=== PATIENT | male | born 1975 | race Hispanic/Latino ===

== ENCOUNTER 2018-08-24 16:26 | Emergency (ER) | payer SELFPAY ==
[2018-08-24 16:45] LABS: Absolute Lymphocytes (CBC) 5.4 K/uL (0.7-4.9); Absolute Monocytes 0.9 K/uL (0.1-1.3); Absolute Neutrophil 3.5 K/uL (1.8-8.0); Eosinophils % 3.9 % (0-4.4); Hematocrit 43.1 % (39.6-49.0); Lymphocytes % 52.7 % (15.3-44.8); MPV 9.7 fL (7.6-11.3); Monocytes % 8.5 % (3.3-12.3)
[2018-08-24] MEDS ORDERED: ONDANSETRON 4 MG/2 ML VIAL ONE (16:46)
[2018-08-24] MEDS ORDERED: MORPHINE 4 MG/ML SYR ONE ×2 (16:46→16:56)
--- NOTE | 2018-08-24 16:50 | ER ---
Nurse's Notes [facility] Name: Mike Vega Age: 43 yrs Sex: Male : 1975 Arrival Date: 08/24/2018 Time: 16:28 Bed 17 Private MD: Diagnosis: STEMI- Inferior Wall Presentation: 08/24 16:31 Presenting complaint: EMS states: pt rolled over in front of [facility] complaining hj of chest pain and diaphoretic, pain of 8/10;. Transition of care: patient was not received from another setting of care. Onset of symptoms was August 24, 2018 at 16:00. Risk Assessment: Do you want to hurt yourself or someone else? Patient reports no desire to harm self or others. Initial Sepsis Screen: Does the patient meet any 2 criteria? No. Patient's initial sepsis screen is negative. Does the patient have a suspected source of infection? No. Patient's initial sepsis screen is negative. Care prior to arrival: None. 16:31 Method Of Arrival: EMS: [facility] hj 16:31 Acuity: MARCIAL 2 hj Triage Assessment: 16:41 General: Appears in no apparent distress. uncomfortable, Behavior is cooperative, hj appropriate for age, anxious. Pain: Complains of pain in chest Pain radiates to back Pain currently is 8 out of 10 on a pain scale. EENT: No signs and/or symptoms were reported regarding the EENT system. Neuro: Level of Consciousness is awake, alert, obeys commands, Oriented to person, place, time, situation, Appropriate for age. Cardiovascular: Reports chest pain, diaphoresis, nausea, Heart tones S1 S2 Capillary refill < 3 seconds Rhythm is sinus bradycardia. Respiratory: Reports shortness of breath. GI: No signs and/or symptoms were reported involving the gastrointestinal system. : No signs and/or symptoms were reported regarding the genitourinary system. Derm: No signs and/or symptoms reported regarding the dermatologic system. Musculoskeletal: No signs and/or symptoms reported regarding the musculoskeletal system. Historical: - Allergies: 16:40 No Known Allergies; hj - Home Meds: 16:40 None [Active]; hj - PMHx: 16:40 None; hj - PSHx: 16:40 None; hj - Immunization history:: Adult Immunizations unknown. - Social history:: Smoking status: Patient/guardian denies using tobacco, Patient/guardian denies using alcohol. - Ebola Screening: : Patient negative for fever greater than or equal to 101.5 degrees Fahrenheit, and additional compatible Ebola Virus Disease symptoms Patient denies exposure to infectious person Patient denies travel to an Ebola-affected area in the 21 days before illness onset. Screenin:41 Abuse screen: Denies threats or abuse. Denies injuries from another. Nutritional hj screening: No deficits noted. Tuberculosis screening: No symptoms or risk factors identified. Fall Risk None identified. Assessment: 16:42 Pain: Pain began 30 min ago. hj 16:42 General: Appears in no apparent distress. uncomfortable, Behavior is cooperative, hj appropriate for age, anxious. Pain: Complains of pain in chest Pain radiates to back. Neuro: Level of Consciousness is awake, alert, obeys commands, Oriented to person, place, time, situation, Appropriate for age. Cardiovascular: Reports chest pain. Respiratory: Reports shortness of breath Airway is patent Respiratory effort is even, unlabored, Respiratory pattern is regular, symmetrical. GI: No signs and/or symptoms were reported involving the gastrointestinal system. : No signs and/or symptoms were reported regarding the genitourinary system. EENT: No signs and/or symptoms were reported regarding the EENT system. Derm: No signs and/or symptoms reported regarding the dermatologic system. Musculoskeletal: No signs and/or symptoms reported regarding the musculoskeletal system. 16:42 Reassessment: pt complaints of pain; provider aware with orders;. hj 16:50 Reassessment: Patient and/or family updated on plan of care and expected duration. Pain hj level reassessed. Patient is alert, oriented x 3, equal unlabored respirations, skin warm/dry/pink. carried out orders as ordered;. 16:55 Reassessment: reports called to Nancy Pritchett RN labor economics teacher at [facility];. hj 17:05 Reassessment: at bedside; report given to EMS LJ crew; pt transferred to stretcher;. Reassessment: Patient and/or family updated on plan of care and expected duration. Pain level reassessed. Patient is alert, oriented x 3, equal unlabored respirations, skin warm/dry/pink. pt left ED;. Vital Signs: 16:31 BP 185 / 96; Pulse 55; Resp 18; Temp 98.1(O); Pulse Ox 100% on R/A; Weight 87.1 kg; iw Height 5 ft. 7 in. (170.18 cm); Pain 8/10; 16:44 BP 160 / 96; Pulse 52; Resp 18; Pulse Ox 100% on 2 lpm NC; hj 17:05 BP 160 / 98; Pulse 84; Resp 18; Pulse Ox 100% on 2 lpm NC; hj 16:31 Body Mass Index 30.07 (87.10 kg, 170.18 cm) iw ED Course: 16:28 Patient arrived in ED. ls4 16:28 Carlos Eduardo Warner, RN is Primary Nurse. hj 16:30 Initial lab(s) drawn, by me, sent to lab. Inserted saline lock: 20 gauge in right iw antecubital area, using aseptic technique. Blood collected. 16:30 No provider procedures requiring assistance completed. Maintain EMS IV. Dressing hj intact. Good blood return noted. Site clean \T\ dry. Gauge \T\ site: 18 g L AC;. 16:35 EKG DONE BY DIAGNOSTIC MEDICAL SONOGRAPHER, x3 RESULTS SHOWN TO . sm3 16:36 Casimiro Villalba MD is Attending Physician. ps1 16:39 Triage completed. hj 16:42 Arm band placed on right wrist. hj 16:42 Patient has correct armband on for positive identification. Placed in gown. Bed in low hj position. Call light in reach. Side rails up X2. equipment monitor phototypesetting on. Pulse ox on. NIBP on. 16:43 Patient maintains SpO2 saturation greater than 95% on room air. hj 16:52 \T\1635 initiated a transfer with Toma at the [facility] / \T\1639 faxed EKG's to the eb labor economics teacher at [phone]/ \T\11[address] Lim the stonecutter commission agent livestock with Dr. Villalba for patient transfer consulation/ \T\8962 administrative approval given by Toma [facility]/ pt going to the labor economics teacher/ report to be called to [phone]. 17:05 Patient transferred, IV remains in place. intact. hj 17:46 XRAY Chest (1 view) In Process Unspecified. EDMS Administered Medications: 16:30 Drug: morphine 4 mg Route: IVP; Site: right antecubital; hj 16:58 Follow up: Response: Pain is unchanged, physician notified hj 16:30 Drug: Zofran 4 mg Route: IVP; Site: right antecubital; hj 16:58 Follow up: Response: No adverse reaction hj 16:48 Drug: morphine 4 mg Route: IVP; Site: right antecubital; hj 16:58 Follow up: Response: No adverse reaction hj 16:57 Drug: PlaVIX 300 mg Route: PO; iw 17:11 Follow up: Response: No adverse reaction iw 17:00 Drug: Tenecteplase 45 mg {Co-Signature: melida (Carlos Eduardo Warner RN).} Route: IV; Rate: bolus; iw Site: right antecubital; 17:06 Follow up: IV Status: Completed infusion iw 17:06 Drug: Heparin (CO-Bolus with thrombolytic) - HEParin 60 units/kg {Co-Signature: melida castillo (Carlos Eduardo Warner RN).} Route: IVP; Site: right antecubital; 17:11 Follow up: Response: No adverse reaction iw 17:10 Drug: Heparin (CO Drip) 12 units/kg/hr - (HEParin 93966 units, D5W 500 ml) iw {Co-Signature: melida (Carlos Eduardo Warner RN).} Route: IV; Rate: calculated rate; Site: right antecubital; 17:11 Follow up: IV Status: Infusion continued upon transfer iw 17:20 Not Given (pt left ED): morphine 4 mg IVP once hj Outcome: 16:48 ER care complete, transfer ordered by . ps1 17:05 Transferred by ground EMS to [facility], Transfer form completed. hj X-rays sent w/ patient. 17:05 Condition: stable 17:05 Instructed on the need for transfer, Demonstrated understanding of instructions. 17:24 Patient left the ED. melida Signatures: Dispatcher [employer] EDKyra Perez RN RN iw Joaquin, Henry, RN RN hj Singer, Phillip, MD MD ps1 Lorraine Friend Shakira 3 Betty Rebollar, YARITZA RN ls4 Carlos Eduardo montez Corrections: (The following items were deleted from the chart) 16:30 16:29 Presenting complaint: hj hj 16:45 16:31 Pulse 55bpm; Resp 18bpm; Pulse Ox 100% RA; Temp 98.1F Oral; 88 kg; Height 5 ft. 7 hj in.; BMI: 30.3; Pain 8/10; hj 17:25 16:31 BP 185 / 96; Pulse 55bpm; Resp 18bpm; Pulse Ox 100% RA; Temp 98.1F Oral; 88 kg; iw Height 5 ft. 7 in.; BMI: 30.3; Pain 8/10; hj
--- NOTE | 2018-08-24 16:51 | EDPHYS ---
Physician Documentation [facility] Name: Mike Vega Age: 43 yrs Sex: Male : 1975 Arrival Date: 08/24/2018 Time: 16:28 Bed 17 Private MD: ED Physician Casimiro Villalba HPI: 08/24 16:43 This 43 yrs old Male presents to ER via EMS with complaints of Chest Pain. ps1 16:43 patient presented as STEMI from [facility]. Patient states that he started developing ps1 chest pain 30 min SAUSAGE WRAPPER. Pain is described as pressure and non-radiating. He drove to fire department and had ST elevation on leads 5 min SAUSAGE WRAPPER. Hx of HTN and HLD but not on meds. 324 ASA given SAUSAGE WRAPPER. . Historical: - Allergies: 16:40 No Known Allergies; hj - Home Meds: 16:40 None [Active]; hj - PMHx: 16:40 None; hj - PSHx: 16:40 None; hj - Immunization history:: Adult Immunizations unknown. - Social history:: Smoking status: Patient/guardian denies using tobacco, Patient/guardian denies using alcohol. - Ebola Screening: : Patient negative for fever greater than or equal to 101.5 degrees Fahrenheit, and additional compatible Ebola Virus Disease symptoms Patient denies exposure to infectious person Patient denies travel to an Ebola-affected area in the 21 days before illness onset. ROS: 16:43 Constitutional: Negative for fever, chills, and weight loss, Eyes: Negative for injury, ps1 pain, redness, and discharge, ENT: Negative for injury, pain, and discharge, Respiratory: Negative for shortness of breath, cough, wheezing, and pleuritic chest pain, Abdomen/GI: Negative for abdominal pain, nausea, vomiting, diarrhea, and constipation, Back: Negative for injury and pain, MS/Extremity: Negative for injury and deformity, Skin: Negative for injury, rash, and discoloration, Neuro: Negative for headache, weakness, numbness, tingling, and seizure. 16:43 Cardiovascular: Positive for chest pain. Exam: 16:43 Constitutional: This is a well developed, well nourished patient who is awake, alert, ps1 and in no acute distress. Head/Face: Normocephalic, atraumatic. Eyes: Pupils equal round and reactive to light, extra-ocular motions intact. Lids and lashes normal. Conjunctiva and sclera are non-icteric and not injected. Chest/axilla: Normal chest wall appearance and motion. Nontender with no deformity. No lesions are appreciated. Cardiovascular: Regular rate and rhythm. No gallops, murmurs, or rubs. Normal PMI, no JVD. No pulse deficits. Respiratory: Lungs have equal breath sounds bilaterally, clear to auscultation and percussion. No rales, rhonchi or wheezes noted. No increased work of breathing, no retractions or nasal flaring. Abdomen/GI: Soft, non-tender, with normal bowel sounds. No distension or tympany. No guarding or rebound. No evidence of tenderness throughout. Skin: Warm, dry with normal turgor. Normal color with no rashes, no lesions, and no evidence of cellulitis. MS/ Extremity: Pulses equal, no cyanosis. Neurovascular intact. Full, normal range of motion. Neuro: Awake and alert, GCS 15, oriented to person, place, time, and situation. Cranial nerves II-XII grossly intact. Sensory grossly intact. Vital Signs: 16:31 BP 185 / 96; Pulse 55; Resp 18; Temp 98.1(O); Pulse Ox 100% on R/A; Weight 87.1 kg; iw Height 5 ft. 7 in. (170.18 cm); Pain 8/10; 16:44 BP 160 / 96; Pulse 52; Resp 18; Pulse Ox 100% on 2 lpm NC; hj 17:05 BP 160 / 98; Pulse 84; Resp 18; Pulse Ox 100% on 2 lpm NC; hj 16:31 Body Mass Index 30.07 (87.10 kg, 170.18 cm) iw MDM: 16:48 Patient medically screened. ps1 16:48 Data reviewed: vital signs, nurses notes, EKG, and as a result, I will transfer ps1 patient. . 16:53 ED course: Unable to fly patient 08/05 weather. We will give tenecteplase, heparin, ps1 clopidogrel and ground transfer. . 08/24 16:29 Order name: Basic Metabolic Panel [facility] 08/24 16:29 Order name: CBC with Diff; Complete Time: 16:54 [facility] 08/24 16:29 Order name: LFT's [facility] 08/24 16:29 Order name: Magnesium [facility] 08/24 16:29 Order name: NT PRO-BNP [facility] 08/24 16:29 Order name: PT-INR; Complete Time: 17:00 [facility] 08/24 16:29 Order name: Troponin (emerg Dept Use Only) [facility] 08/24 16:29 Order name: XRAY Chest (1 view) [facility] 08/24 16:29 Order name: EKG; Complete Time: 16:31 [facility] 08/24 16:29 Order name: Cardiac monitoring; Complete Time: 16:48 [facility] 08/24 16:29 Order name: EKG - Nurse/Tech; Complete Time: 16:47 [facility] 08/24 16:29 Order name: IV Saline Lock; Complete Time: 16:47 [facility] 08/24 16:29 Order name: Labs collected and sent; Complete Time: 16:47 [facility] 08/24 16:29 Order name: O2 Per Protocol; Complete Time: 16:47 [facility] 08/24 16:29 Order name: O2 Sat Monitoring; Complete Time: 16:48 [facility] 08/24 16:43 Order name: EKG Electrocardiogram; Complete Time: 16:49 EDMS 08/24 16:43 Order name: EKG Electrocardiogram; Complete Time: 16:49 EDMS EC:43 Rate is 51 beats/min. Rhythm is regular. QRS [place] is Normal. MS interval is normal. QRS ps1 interval is normal. QT interval is normal. Q waves are Present. T waves are Normal. ST Segment is elevated in leads II, III, aVF. ST Segment is depressed in leads I, aVL. Clinical impression: Inferior PR - acute. Administered Medications: 16:30 Drug: morphine 4 mg Route: IVP; Site: right antecubital; 16:58 Follow up: Response: Pain is unchanged, physician notified hj 16:30 Drug: Zofran 4 mg Route: IVP; Site: right antecubital; hj 16:58 Follow up: Response: No adverse reaction hj 16:48 Drug: morphine 4 mg Route: IVP; Site: right antecubital; hj 16:58 Follow up: Response: No adverse reaction hj 16:57 Drug: PlaVIX 300 mg Route: PO; iw 17:11 Follow up: Response: No adverse reaction iw 17:00 Drug: Tenecteplase 45 mg {Co-Signature: hj (Carlos Eduardo Warner RN).} Route: IV; Rate: bolus; iw Site: right antecubital; 17:06 Follow up: IV Status: Completed infusion iw 17:06 Drug: Heparin (PR-Bolus with thrombolytic) - HEParin 60 units/kg {Co-Signature: melida iw (Carlos Eduardo Warner RN).} Route: IVP; Site: right antecubital; 17:11 Follow up: Response: No adverse reaction iw 17:10 Drug: Heparin (PR Drip) 12 units/kg/hr - (HEParin 14390 units, D5W 500 ml) iw {Co-Signature: melida (Carlos Eduardo Warner RN).} Route: IV; Rate: calculated rate; Site: right antecubital; 17:11 Follow up: IV Status: Infusion continued upon transfer iw 17:20 Not Given (pt left ED): morphine 4 mg IVP once hj Disposition: 16:47 Critical Care:. ps1 Disposition: 08/24/18 16:48 Transfer ordered to [facility]. Diagnosis is STEMI- Inferior Wall. - Reason for transfer: Higher level of care. - Accepting physician is Carina. - Condition is Serious. - Problem is new. - Symptoms are unchanged. Critical care time excluding procedures: 16:47 Critical care time: Bedside Care: 35 minutes, Consultation: 10 minutes. Total time: 45 ps1 minutes Signatures: Dispatcher [employer] Kyra Farris RN RN iw Joaquin, Henry, RN RN hj Singer, Phillip, MD MD ps1 Betty Rebollar RN RN ls4 Carlos Eduardo Warner RN hj Corrections: (The following items were deleted from the chart) 17:24 16:48 08/24/2018 16:48 Transfer ordered to [facility]. Diagnosis is hj STEMI- Inferior Wall. Reason for transfer: Higher level of care. Accepting physician is Alayusuf. Condition is Serious. Problem is new. Symptoms are unchanged. ps1
[2018-08-24 16:52] LABS: Protime INR 0.95
[2018-08-24] MEDS ORDERED: TENECTEPLASE 50 MG/10 ML VIAL IV ONE (17:03)
[2018-08-24 17:07] LABS: ALT/SGPT 35 U/L (12-78); AST/SGOT 29 U/L (15-37); Albumin 3.7 g/dL (3.4-5.0); Alkaline Phosphatase 41 U/L (45-117); BUN Blood Urea Nitrogen 18 mg/dL (7-18); Bicarbonate 26 mmol/L (21-32); Bilirubin Direct < 0.1 mg/dL (0-0.2); Bilirubin Total 0.4 mg/dL (0.2-1.0); Glucose Level 129 mg/dL (74-106); Magnesium 2.2 mg/dL (1.8-2.4); NT PRO-BNP 25 pg/mL (<125); Potassium 3.4 mmol/L (3.5-5.1); Protein, Total 7.5 g/dL (6.4-8.2); Sodium Level 142 mmol/L (136-145); Troponin (Emerg Dept Use Only) 0.05 ng/mL (0.0-0.045)
[2018-08-24] MEDS ORDERED: CLOPIDOGREL 75 MG TABLET ONE ×2 (17:09→17:13)
[2018-08-24] MEDS ORDERED: HEPARIN/D5W 25,000 UNIT/500 ML BAG IV ONE (17:17)
--- NOTE | 2018-08-24 18:07 | RAD REPORT ---
EXAM DESCRIPTION: RAD - Chest Single View - 08/24/2018 5:44 pm CLINICAL HISTORY: CHEST PAIN Chest pain. COMPARISON: No comparisons FINDINGS: Portable technique limits examination quality. The lungs are grossly clear. The heart is normal in size. No displaced fractures. IMPRESSION: No acute intrathoracic process suspected.
--- NOTE | 2018-08-24 21:36 | EKG ---
Test Date: 2018-08-24 Test Time: 16:26:59 Front Man: TORSTEN MEASUREMENT RESULTS: Intervals: Rate: 50 MI: 252 QRSD: 102 QT: 416 QTc: 379 [place]: P: 92 MI: 252 QRS: -1 T: 93 INTERPRETIVE STATEMENTS: Sinus bradycardia with 1st degree AV block with occasional premature ventricular complexes ST elevation, consider inferior injury or acute infarct ACUTE [place] Consider right ventricular involvement in acute inferior infarct Abnormal ECG No previous ECG available for comparison Electronically Signed On 08-24-18 21:35:15 INSTRUMENT INSTALLER by Hector Little
--- NOTE | 2018-08-24 21:36 | EKG ---
Test Date: 2018-08-24 Test Time: 16:27:48 Board Finisher: TORSTEN MEASUREMENT RESULTS: Intervals: Rate: 54 [place]: 268 QRSD: 102 QT: 424 QTc: 402 [place]: P: 62 OK: 268 QRS: 7 T: 98 INTERPRETIVE STATEMENTS: Sinus bradycardia with 1st degree AV block ST elevation, consider inferior injury or acute infarct ACUTE [place] Consider right ventricular involvement in acute inferior infarct Abnormal ECG No previous ECG available for comparison Electronically Signed On 08-24-18 21:35:12 DEVELOPER TRADING SYSTEMS by Hector Little
--- NOTE | 2018-08-24 21:36 | EKG ---
Test Date: 2018-08-24 Test Time: 16:29:20 Bending Machine Operator: TORSTEN MEASUREMENT RESULTS: Intervals: Rate: 51 [place]: 258 QRSD: 98 QT: 414 QTc: 381 [place]: P: 55 [place]: 258 QRS: 65 T: 101 INTERPRETIVE STATEMENTS: Sinus bradycardia with 1st degree AV block with premature atrial complexes with aberrant conduction ST elevation, consider inferior injury or acute infarct ACUTE [place] Consider right ventricular involvement in acute inferior infarct Abnormal ECG No previous ECG available for comparison Electronically Signed On 08-24-18 21:35:09 FINISHING INSPECTOR by Hector Little
== END 2018-08-24 17:24 | disposition short-term general hospital (02) ==
LOC: ER 16:26
DX: I21.19 ST elevation (STEMI) myocardial infarction involving other coronary artery of inferior wall (principal); I10 Essential (primary) hypertension
CPT/HCPCS: 36415; 71045; 80048; 80076; 83735; 83880; 84484; 85025; 85610; 92977; 93005; 96374; 96375; 99285; J1644; J2405; J3101